=== PATIENT | male | born 1980 | race American Indian/Alaskan Native ===

== ENCOUNTER 2018-03-25 11:45 | Emergency (ER) | payer SELFPAY ==
[2018-03-25 12:02] VITALS: BP 162/96
--- NOTE | 2018-03-25 13:11 | Emergency Department Report ---
HPI - General Chief Complaint: Extremity Injury, Upper Time Seen by Provider: 03/25/18 12:43 - HPI HPI: This is a 37-year-old male presents to ED complaining of right middle finger swelling and pain for the past 10 days. Patient states swelling is worse. He denies any trauma, injury to the finger. Patient states he tried to prick a hole in his finger with a small pin but decided against it. ED Past Medical Hx - Past Medical History Previous Medical History?: No - Surgical History Past Surgical History?: No - Social History Smoking Status: Never Smoker Substance Use Type: None - Medications Home Medications: Home Medications Medication Instructions Recorded Confirmed Last Taken Type Acetaminophen/Codeine [Tylenol 1 tab PO Q6H #10 tab 03/25/18 Unknown Rx /Codeine # 3 tab] Cephalexin [Keflex] 500 mg PO BID #14 capsule 03/25/18 Unknown Rx Ibuprofen [Motrin] 800 mg PO Q8HR #30 tablet 03/25/18 Unknown Rx ED Review of Systems ROS: Stated complaint: FINGER PAIN Other details as noted in HPI Constitutional: denies: chills, fever Eyes: denies: eye pain, eye discharge, vision change ENT: denies: ear pain, throat pain Respiratory: denies: cough, shortness of breath, wheezing Cardiovascular: denies: chest pain, palpitations Endocrine: no symptoms reported Gastrointestinal: denies: abdominal pain, nausea, diarrhea Genitourinary: denies: urgency, dysuria Musculoskeletal: denies: back pain, joint swelling, arthralgia Skin: denies: rash, lesions Neurological: denies: headache, weakness, paresthesias Psychiatric: denies: anxiety, depression Hematological/Lymphatic: denies: easy bleeding, easy bruising Physical Exam - Physical Exam Vital Signs: Vital Signs 03/25/18 12:00 Temperature 98.4 F Pulse Rate 83 Respiratory 16 Rate Blood Pressure 162/96 O2 Sat by Pulse 99 Oximetry Physical Exam: GENERAL: Alert and oriented x3, no apparent distress, Normal Gait, atraumatic. HEAD: Head is normocephalic and a-traumatic. LUNGS: Symetrical with respiration, No wheezing, no rales or crackles, CTAB. EXTREMITIES/MUSCULOSKELETAL: No cyanosis, clubbing, rash, lesions or edema. Full ROM bilaterally. Right third middle digit swollen, fluctuant, pain with flexing, tender to palpation. SKIN: Warm and dry, No lesions, No ulceration or induration present. ED Course Vital Signs 03/25/18 12:00 Temperature 98.4 F Pulse Rate 83 Respiratory 16 Rate Blood Pressure 162/96 O2 Sat by Pulse 99 Oximetry ED Medical Decision Making - Radiology Data Radiology results: report reviewed, image reviewed XRay Report Signed Patient: BRIDGETT GUZMÁN MR#: [id number] : 1980 Acct:[id number] Age/Sex: 37 / M ADM Date: 03/25/18 Loc: ED Attending Dr: Ordering Physician: ANTONIETTA PEREYRA Date of Service: 03/25/18 Procedure(s): XR finger(s) 2+V RT Accession Number(s): [id number] cc: ANTONIETTA PEREYRA Fluoro Time In Minutes: RIGHT FINGERS, 3 VIEWS History: Middle finger swelling and pain. Findings: There is mild nonspecific soft tissue swelling of the third digit. Normal bone mineralization. No fracture, bone lesion or joint pathology is appreciated. Impression: Soft tissue swelling. Transcribed By: TTR Dictated By: LEA CLEVELAND JR, MD Electronically Authenticated By: LEA CLEVELAND JR, MD Signed Date/Time: 03/25/18 1411 - Medical Decision Making Patient positioned appropriately, 4cc lidocaine without epinephrine was used as a digital anesthetic. #11 blade scalpal used for single incision. Additional local anesthetic injected into surrounding viable tissue prior to blunt dissection of loculated adhesions. Copius drainage of pus. Procedure tolerated without complications. Wound dressed with sterile 4x4 guaze and paper tape. Pt tolerated procedure well. Discussed with patient to take antibiotics as prescribed Discussed pain medication as needed for pain sign patient states understanding all instructions given. Patient is in no acute or respiratory distress. Patient was discharged with antibiotics and pain medication and instructions for wound care. His course of follow-up with primary care physician in 3 days Critical care attestation.: If time is entered above; I have spent that time in minutes in the direct care of this critically ill patient, excluding procedure time. ED Disposition Clinical Impression: Abscess of finger, right Disposition: [id number] TO HOME OR SELFCARE Is pt being admited?: No Does the pt Need Aspirin: No Condition: Stable Instructions: Abscess Incision and Drainage (ED), Acute Wound Care (ED), Abscess (ED) Additional Instructions: Make sure to follow up with the primary care physician as discussed. Take all your medications as you've been prescribed. If you have any worsening symptoms or develop new symptoms please return to ED immediately. Prescriptions: Acetaminophen/Codeine [Tylenol /Codeine # 3 tab] 1 tab PO Q6H #10 tab Cephalexin [Keflex] 500 mg PO BID #14 capsule Ibuprofen [Motrin] 800 mg PO Q8HR #30 tablet Referrals: PRIMARY CARE, [Primary Care Provider] - 3-5 Days [facility] [Outside] - 3-5 Days [facility] [Outside] - 3-5 Days [facility] [Outside] - 3-5 Days Forms: Work/School Release Form(ED) Time of Disposition: 15:25
[2018-03-25] MEDS ORDERED: TYLENOL #3 PO ONE (13:23)
[2018-03-25] MEDS ORDERED: XYLOCAINE 1% 20 mL INFILTRATI NR (13:30)
--- NOTE | 2018-03-25 14:13 | XRay Report ---
RIGHT FINGERS, 3 VIEWS History: Middle finger swelling and pain. Findings: There is mild nonspecific soft tissue swelling of the third digit. Normal bone mineralization. No fracture, bone lesion or joint pathology is appreciated. Impression: Soft tissue swelling.
== END 2018-03-25 15:51 | disposition home or self-care (01) ==
LOC: ED 11:45
DX: L02.511 Cutaneous abscess of right hand (principal)
CPT/HCPCS: 99283